=== PATIENT | female | born 1980 | race African-American/Black ===

== ENCOUNTER 2020-07-26 14:38 | Inpatient (IN) ==
[2020-07-26 15:48] LABS: Urine Appearance Clear; Urine Bilirubin Negative (Negative); Urine Blood Negative (Negative); Urine Color Yellow; Urine Glucose Negative (Negative); Urine Ketones Trace (Negative); Urine Nitrite Negative (Negative); Urine Protein Negative (Negative); Urine Specific Gravity 1.027 (1.010-1.030); Urine Urobilinogen Negative (Negative)
[2020-07-26 15:55] LABS: ABS Lymphocytes 2.2 10^3/ul (1.0-4.8); ABS Monocytes 0.5 10^3/ul (0-0.8); ABS Neutrophils 5.3 10^3/ul (1.5-7.7); Eosinophil % 0.6 %; Hematocrit 38 % (35-47); Hemoglobin 13.4 g/dL (12.0-16.0); Lymphocyte % 27.3 %; Mean Corpuscular HGB Conc 35 g/dL (31-36); Mean Corpuscular Hemoglobin 32 pg (27-31); Mean Corpuscular Volume 92 fL (80-97); Mean Platelet Volume 8.4 fL (7.4-10.4); Platelet Count 218 10^3/uL (150-450); Red Blood Count 4.16 10^6 /uL (3.70-4.87); Red Cell Distribution Width 12 % (10-15); White Blood Count 8.1 10^3/uL (3.5-10.8)
[2020-07-26 16:16] LABS: Urine Benzodiazepine Screen Presumptive Positive (None Detect); Urine Cannabinoids Screen Presumptive Positive (None Detect); Urine Opiates Screen None Detected (None Detect)
[2020-07-26 16:18] LABS: ALT 12 U/L (7-52); AST 14 U/L (13-39); Albumin 4.5 g/dL (3.2-5.2); Albumin/Globulin Ratio 1.5 (1-3); Alkaline Phosphatase 37 U/L (34-104); Anion Gap 12 mmol/L (2-11); BUN/Creatinine Ratio 26.9 (8-20); Blood Urea Nitrogen 18 mg/dL (6-24); CO2 Carbon Dioxide 23 mmol/L (22-32); Calcium 9.9 mg/dL (8.6-10.3); Chloride 104 mmol/L (101-111); EGFR Non-African American 97.5 (>60); Glucose 87 mg/dL (70-100); Potassium 3.8 mmol/L (3.5-5.0); Sodium 139 mmol/L (135-145); Total Protein 7.5 g/dL (6.4-8.9)
[2020-07-26 16:42] LABS: TSH Ultra Thyroid Stim Horm 1.36 mcIU/mL (0.34-5.60)
[2020-07-26 22:02] LABS: Acetaminophen < 15 mcg/mL; Alcohol, S < 10 mg/dL (<10)
[2020-07-26 22:23] LABS: Salicylate < 2.50 mg/dL (<30)
[2020-07-27] MEDS ORDERED: Omeprazole 20 mg CAP (NF) PO ONE (10:04)
[2020-07-27] MEDS ORDERED: Al Hydrox/Mg Hydrox/Simet LIQ 30 ML UDC PO PRN (15:16)
[2020-07-28] MEDS: Vitamin THERAPEUTIC TAB PO SCH (08:32)
[2020-07-28] MEDS ORDERED: Influenza VAC *QUAD* 2020-21* 0.5 ML SYRINGE IM ONE (09:00)
[2020-07-29] MEDS: Vitamin THERAPEUTIC TAB PO SCH (08:44)
[2020-07-30] MEDS: Vitamin THERAPEUTIC TAB PO SCH (07:48)
[2020-07-30 08:03] LABS: HDL Cholesterol 35.5 mg/dL
[2020-07-30 08:10] LABS: HCG Pregnancy 1.02 mIU/mL
[2020-07-31] MEDS: Vitamin THERAPEUTIC TAB PO SCH (08:10)
[2020-08-01] MEDS: Vitamin THERAPEUTIC TAB PO SCH (08:26)
[2020-08-02] MEDS: Vitamin THERAPEUTIC TAB PO SCH (09:04)
[2020-08-03] MEDS: Vitamin THERAPEUTIC TAB PO SCH (09:15)
[2020-08-03 09:49] VITALS: BP 127/94
== END 2020-08-03 13:30 | disposition home or self-care (01) | DRG 750 ==
LOC: ED 14:38 → BSU 07-27 15:16
PROVIDERS: ADMIT Psychiatry & Neurology Psychiatry; ATTEND Psychiatry & Neurology Psychiatry

== ENCOUNTER 2022-02-15 15:33 | Inpatient (IN) ==
[2022-02-15 16:29] LABS: ABS Eosinophils 0.1 10^3/ul (0-0.6); ABS Lymphocytes 2.5 10^3/ul (1.0-4.8); ABS Monocytes 0.5 10^3/ul (0-0.8); ABS Neutrophils 4.4 10^3/ul (1.5-7.7); Eosinophil % 1.6 %; Hematocrit 45 % (35-47); Hemoglobin 15.1 g/dL (12.0-16.0); Lymphocyte % 32.9 %; Mean Corpuscular HGB Conc 34 g/dL (31-36); Mean Corpuscular Hemoglobin 31 pg (27-31); Mean Corpuscular Volume 90 fL (80-97); Mean Platelet Volume 8.7 fL (7.4-10.4); Nucleated Red Blood Cells % 0.1; Platelet Count 350 10^3/uL (150-450); Red Blood Count 4.92 10^6 /uL (3.70-4.87); Red Cell Distribution Width 13 % (10-15); White Blood Count 7.6 10^3/uL (3.5-10.8)
[2022-02-15 16:47] LABS: ALT 30 U/L (7-52); AST 17 U/L (13-39); Acetaminophen < 15 mcg/mL; Albumin 4.8 g/dL (3.2-5.2); Albumin/Globulin Ratio 1.6 (1-3); Alcohol, S < 13 mg/dL (<13); Alkaline Phosphatase 63 U/L (35-149); Anion Gap 8 mmol/L (2-11); Blood Urea Nitrogen 10 mg/dL (6-24); CO2 Carbon Dioxide 27 mmol/L (22-32); Calcium 10.1 mg/dL (8.6-10.3); Chloride 103 mmol/L (101-111); Glucose 86 mg/dL (70-100); Potassium 4.2 mmol/L (3.5-5.0); Salicylate < 2.50 mg/dL (<30); Sodium 138 mmol/L (135-145); Total Protein 7.8 g/dL (6.4-8.9); eGFR CKD-EPI 104.2 (>60)
[2022-02-15 16:52] LABS: HCG Pregnancy 2.51 mIU/mL
[2022-02-15 17:00] LABS: TSH Ultra Thyroid Stim Horm 1.03 mcIU/mL (0.34-5.60)
[2022-02-15 17:47] LABS: Urine Appearance Cloudy; Urine Bilirubin Negative (Negative); Urine Blood Negative (Negative); Urine Color Yellow; Urine Glucose Negative (Negative); Urine Ketones Negative (Negative); Urine Nitrite Negative (Negative); Urine Protein Negative (Negative); Urine Specific Gravity 1.018 (1.002-1.030); Urine Urobilinogen Negative (Negative)
[2022-02-15 17:53] LABS: Urine Bacteria Absent (Absent); Urine Red Blood Cell Absent (Absent); Urine Squamous Epithelial Cell Present (Absent); Urine White Blood Cell 3+(>20/hpf) (Absent)
[2022-02-15 18:10] LABS: Urine Benzodiazepine Screen None Detected (None Detect); Urine Cannabinoids Screen Presumptive Positive (None Detect); Urine Opiates Screen None Detected (None Detect)
[2022-02-15] MEDS ORDERED: Al Hydrox/Mg Hydrox/Simet LIQ 30 ML UDC PO PRN (20:28)
[2022-02-15] MEDS ORDERED: chlorproMAZINE TAB 50 MG Q6H PRN AGITATION PO (21:00)
[2022-02-16 09:03] LABS: HDL Cholesterol 37.1 mg/dL
[2022-02-16] MEDS: Vitamin THERAPEUTIC TAB PO SCH (10:14)
[2022-02-16 14:46] LABS: Valproic Acid < 13.0 mcg/mL (50-100)
[2022-02-17] MEDS: Vitamin THERAPEUTIC TAB PO SCH ×2 (10:24→12:31)
[2022-02-18 07:35] VITALS: BP 124/83
== END 2022-02-18 13:19 | disposition home or self-care (01) | DRG 776 ==
LOC: ED 15:33 → EDHOLD 18:35 → BSU 20:20
PROVIDERS: ADMIT Psychiatry & Neurology Addiction Psychiatry; ATTEND Psychiatry & Neurology Psychiatry